=== PATIENT | female | born 1970 | race Caucasian/White ===

== ENCOUNTER 2016-12-02 12:57 | Emergency (ER) | payer OTHER ==
[2016-12-02 13:05] VITALS: BP 144/85
--- NOTE | 2016-12-02 14:39 | ED Physician Documentation ---
PD HPI DYSPNEA - Stated complaint Stated Complaint: SOA - Chief complaint Chief Complaint: Resp - History obtained from History obtained from: Patient, Family (spouse) - History of Present Illness Timing - onset: How many days ago (5) Timing - details: Waxing and waning Inciting event(s): Allergic rxn/anaphylaxis (Onset while cutting grass.) Improved by: Inhaler/neb Associated symptoms: Cough, Chest pain / discomfort Similar symptoms before: Diagnosis (History of asthma and seasonal allergies, with her last similar episode occurring about 3 or 4 months ago.) - Treatment prior to arrival Treatment prior to arrival: Albuterol inhaler. - Additional information Additional information: The patient is a 46-year-old female with history of asthma and environmental allergies, who presents with "an asthma attack" that started 5 days ago after cutting grass. She has been getting temporary improvement after using her inhaler, but today her symptoms were continuing despite the inhaler. While on the way to the emergency department she realized her inhaler had become outdated. When she opened up a new inhaler and used it her symptoms resolved. She has had associated chest tightness. She denies fever, nausea or vomiting. Her last similar episode occurred about 3 or 4 months ago. Review of Systems Constitutional: denies: Fever Eyes: denies: Discharge Nose: denies: Congestion Throat: denies: Sore throat Cardiac: reports: Chest pain / pressure (Chest tightness associated with wheezing.) Respiratory: reports: Dyspnea, Cough, Wheezing GI: denies: Abdominal Pain, Nausea, Vomiting : denies: Dysuria Skin: denies: Rash Musculoskeletal: denies: Neck pain, Back pain, Extremity swelling Neurologic: denies: Focal weakness, Headache PD PAST MEDICAL HISTORY - Past Medical History Past Medical History: Yes Cardiovascular: None Respiratory: Asthma Endocrine/Autoimmune: None - Past Surgical History Past Surgical History: Yes HEENT: Tonsil/Adenoidectomy - Present Medications Home Medications: Ambulatory Orders Medication Instructions Recorded Confirmed Fexofenadine [Nila] 120 mg PO DAILY 05/23/14 12/02/16 Fluticasone [Flonase] 2 spray INH DAILY 05/23/14 12/02/16 - Allergies Allergies/Adverse Reactions: Allergies Allergy/AdvReac Type Severity Reaction Status Date / Time aspartame AdvReac Unknown Verified 05/23/14 17:37 loratadine [From Claritin] AdvReac Unknown Verified 02/22/16 10:08 - Social History Does the pt smoke?: No Smoking Status: Never smoker Does the pt drink ETOH?: No Does the pt have substance abuse?: No - Immunizations Immunizations are current?: Yes - POLST Patient has POLST: No PD ED PE NORMAL - Vitals Vital signs reviewed: Yes (Mild hypertension initially.) - General General: Alert and oriented X 3, No acute distress, Well developed/nourished, Other (Resting comfortably on the gurney.) - HEENT HEENT: Atraumatic, Pharynx benign - Neck Neck: No adenopathy, No JVD - Cardiac Cardiac: RRR, No murmur - Respiratory Respiratory: No respiratory distress, Clear bilaterally - Abdomen Abdomen: Soft, Non tender - Back Back: No CVA TTP - Derm Derm: No rash - Extremities Extremities: No edema, No calf tenderness / cord - Neuro Neuro: Alert and oriented X 3, No motor deficit, Normal speech Results - Vitals Vitals: Oxygen O2 Source Room air PD MEDICAL DECISION MAKING - ED course Complexity details: considered differential, d/w patient, d/w family ED course: The patient's presentation resulted in a medical screening exam without need for treatment in the emergency department. Her symptoms are suggestive of environmental allergies with reactive airways. Her dyspnea and wheezing resolved after using her own albuterol inhaler prior to presentation to the emergency department. I discussed with her and her that further workup or treatment are not likely to be of clinical benefit, and they agree. She will follow up with her primary physician, and I discussed with them potentially worrisome signs or symptoms that should prompt reevaluation in the emergency department. Departure - Departure Disposition: 01 Home, Self Care Clinical Impression: Asthma attack, Environmental allergies Condition: Stable Instructions: ED Reactive Airway Disease Follow-Up: GILBERT Perez [Provider Group] Comments: Continue to use your albuterol inhaler as needed. Continue Nila as previously prescribed. Follow-up with your primary physician within 1-2 weeks. Call to schedule appointment. Return to the emergency department if you develop increasing difficulty breathing, or otherwise worsening symptoms. Discharge Date/Time: 12/02/16 14:50
== END 2016-12-02 14:50 | disposition home or self-care (01) ==
LOC: ED 12:57
DX: J45.998 Other asthma (principal)
CPT/HCPCS: 99282; 99283

== ENCOUNTER 2020-01-24 13:50 | Outpatient (CLI) | payer OTHER ==
[2020-01-24] MEDS ORDERED: GADOBUTROL 7.5 MMOL/7.5 ML VIAL ONE (14:08)
[2020-01-24] MEDS ORDERED: GADOBUTROL 7.5 MMOL/7.5 ML VIAL IVP ONE (15:07)
--- NOTE | 2020-01-28 17:20 | MRI Report ---
PROCEDURE: Femur/Thigh LT W/WO INDICATIONS: LOCALIZED SWELLING, MASS AND LUMP, EDEMA TECHNIQUE: Noncontrast coronal and sagittal T1 spin echo and STIR; axial T1 spin echo and T2 fast spin echo with fat saturation through the left thigh. Additional axial, coronal and sagittal T1 spin-echo with fat saturation to left side were also obtained after IV contrast infusion. COMPARISON: None. FINDINGS: Image quality: Excellent. Bones: The visualized bone marrow demonstrates normal signal on all sequences. The overlying cortex appears intact. No fractures lines or intra-osseous lesions. No evidence of avascular necrosis of femoral head. Soft tissues: There is tendinosis/low-grade partial thickness tear involving left gluteus medius and minimus tendons at their insertion on greater trochanter. The scanned muscles demonstrate normal ove rall bulk and internal signal. Subcutaneous tissues appear normal as well. No soft tissue masses ar e present. IMPRESSION: 1. No soft tissue mass or fluid collection is identified at patient's reported area of palpable mass. An unencapsulated lipoma cannot be entirely excluded. No area of abnormal contrast enhancement. 2. Tendinosis/low-grade partial thickness tear involving the left gluteus medius and minimus tendons at their insertions on the greater trochanter. No other muscle or tendon signal abnormality. 3. No marrow signal abnormality. No abnormal intraosseous enhancement. Reviewed by: Eyad Quinonez MD on 01/28/2020 5:18 PM PDT Approved by: Eyad Quinonez MD on 01/28/2020 5:18 PM PDT Station ID: [id number]
== END 2020-01-24 13:51 | disposition home or self-care (01) ==
LOC: DI 13:50
PROVIDERS: ATTEND Family Medicine
DX: R22.42 Localized swelling, mass and lump, left lower limb (principal); S76.812A Strain of other specified muscles, fascia and tendons at thigh level, left thigh, initial encounter
CPT/HCPCS: 73720; A9585